=== PATIENT | male | born 1955 | race Caucasian/White ===

== ENCOUNTER 2019-04-08 09:00 | Emergency (ER) | payer OTHER ==
[~2019-04-08] VITALS: Ht 180.3 cm; Wt 87.5 kg
[2019-04-08 09:00] VITALS: BP_SYST 143
--- NOTE | 2019-04-08 09:00 | NUR ---
BROUGHT BACK TO BED #4 AND TRIAGED. REPORT GIVEN TO GENO
--- NOTE | 2019-04-08 09:15 | NUR ---
Pt presents to ED c/o Flank pain.
--- NOTE | 2019-04-08 09:20 | NUR ---
ER at bedside examining patient.
[2019-04-08] MEDS ORDERED: fentaNYL CITRATE/PF 100 MCG/2 ML AMP IVP ONE (09:30)
[2019-04-08] MEDS ORDERED: KETOROLAC TROMETHAMINE 30 MG VIAL IVP ONE (09:30)
[2019-04-08] MEDS ORDERED: NACL 0.9% 1,000 ML IV ONE (09:30)
[2019-04-08] MEDS ORDERED: ONDANSETRON HCL 4 MG/2 ML VIAL IVP ONE (09:30)
--- NOTE | 2019-04-08 09:30 | NUR ---
# 20 gauge angiocath placed to RAC. Use of asceptic technique. Opsite placed over site. Blood return noted. Blood for lab drawn from site. Flushed with 10 cc of normal saline. No evidence of infiltration noted. Patient tolerated well.
[2019-04-08 09:35] LABS: BILIRUBIN,URINE 1+ (NEGATIVE); BLOOD, URINE 3+ (NEGATIVE); CLARITY/URINE SL HAZY (CLEAR); COLOR,URINE YELLOW (YELLOW); GLUCOSE,URINE NEGATIVE (NEGATIVE); KETONES,URINE NEGATIVE (NEGATIVE); LEUKOCYTE ESTERASE ,URINE NEGATIVE (NEGATIVE); NITRITE, URINE NEGATIVE (NEGATIVE); PH,URINE 5.5 (5.0-8.0); PROTEIN URINE 1+ (NEGATIVE); UROBILINOGEN,URINE 0.2 (0.2-1.0)
[2019-04-08 09:53] LABS: BACTERIA,URINE FEW /HPF (None Seen); RBC,URINE 20-50 /HPF (0-3); WBC,URINE 0-3 /HPF (0-3)
--- NOTE | 2019-04-08 10:00 | NUR ---
Pt medicated for pain tolerated well.
[2019-04-08 10:04] LABS: BASOPHILS % (AUTO) 0.5 % (0.0-2.0); EOSINOPHILS # (AUTO) 0.1 K/uL (0.0-0.4); EOSINOPHILS % (AUTO) 0.9 % (0.0-4.0); HEMOGLOBIN 14.9 g/dL (14.0-18.0); LYMPHOCYTES # (AUTO) 1.1 K/uL (1.0-5.5); LYMPHOCYTES % (AUTO) 13.9 % (20.5-51.5); MEAN CORPUSCULAR HEMOGLOBIN 32 pg (27-31); MEAN CORPUSCULAR HGB CONC 34 % (32-36); MEAN CORPUSCULAR VOLUME 93 fL (79.0-98.0); MONOCYTES # (AUTO) 0.7 K/uL (0.0-1.0); MONOCYTES % (AUTO) 8.6 % (1.7-9.3); NEUTROPHILS # (AUTO) 6.1 K/uL (1.8-7.7); NEUTROPHILS % (AUTO) 76.1 % (40.0-70.0); PLATELET COUNT (AUTO) 193 K/uL (130-430); RED BLOOD CELL COUNT(AUTO) 4.74 MIL/uL (4.2-6.2); RED CELL DISTRIBUTION WIDTH 13.1 % (9.0-15.0); WHITE BLOOD COUNT (AUTO) 8.1 K/uL (4.8-10.8)
[2019-04-08 10:26] LABS: ALBUMIN 3.6 g/dL (3.4-4.8); CREATININE 1.13 mg/dL (0.55-1.30); POTASSIUM 4.2 mmol/L (3.5-5.1); TOTAL BILIRUBIN 0.4 mg/dL (0.0-1.0)
--- NOTE | 2019-04-08 11:00 | NUR ---
Pt reports pain resolved
[2019-04-08 11:25] VITALS: BP_SYST 127
--- NOTE | 2019-04-08 11:25 | NUR ---
Patient given written and verbal discharge instructions and verbalizes understanding. ER MD discussed with patient the results and treatment provided. Patient in stable condition. ID arm band removed. IV catheter removed intact and dressing applied, no active bleeding. Rx of NORCO, ZOFRAN, MOTRIN given. Patient educated on pain management and to follow up with PMD. Pain Scale 0/10. Opportunity for questions provided and answered. Medication side effect fact sheet provided.
== END 2019-04-08 11:25 | disposition home or self-care (01) ==
LOC: SED 09:00
DX: N23 Unspecified renal colic (principal); Z87.442 Personal history of urinary calculi
CPT/HCPCS: 36415; 74176; 80053; 81000; 83690; 85025; 96374; 96375; 99284; J1885; J2405; J3010; J7030

== ENCOUNTER 2022-03-11 09:59 | Outpatient (CLI) | payer OTHER, MEDICARE ==
[2022-03-11] MEDS ORDERED: CYSTOGRAFIN 300 ML INFUS..BTL UR ONE (10:22)
== END 2022-03-11 20:37 | disposition home or self-care (01) ==
LOC: SRD 09:59
PROVIDERS: ATTEND Urology
DX: R97.20 Elevated prostate specific antigen [PSA] (principal)
CPT/HCPCS: 51600; 74430; Q9958